=== PATIENT | female | born 1990 | race Caucasian/White ===

== ENCOUNTER 2024-07-22 12:24 | Emergency (ER) | payer MEDICAID, SELFPAY ==
[2024-07-22 13:18] VITALS: BP 136/97; PULSE 87; RESP 18; TEMP 36.9; O2SAT 100; BMI 21.8
--- NOTE | 2024-07-22 14:26 | ED.GENADULT ---
HPI - General Adult General Chief complaint: Unspecified Complaint, Adult Stated complaint: tetanus concern from puncture wound Time Seen by Provider: 07/22/24 14:14 Source: patient Mode of arrival: ambulatory Limitations: no limitations History of Present Illness HPI narrative: 33-year-old female presenting today with concerns that she may have tetanus. Patient punctured the right middle finger on a ceramic bowl 4 days ago. It has healed completely. Today she noticed that the space between her thumb and pointer finger for started tremoring for a couple of minutes. This has happened 3 times today. She denies pain in her jaw or face. No other muscle pain or spasming. No fevers, nausea or altered mental status. She denies her heart racing, sweating. No difficulty breathing or swallowing. Patient states that her tetanus shot was last updated in 2008. Related Data Home Medications ?Medication ?Instructions ?Recorded ?Confirmed No Known Home Medications 02/18/24 03/02/24 Allergies Allergy/AdvReac Type Severity Reaction Status Date / Time No Known Drug Allergies Allergy Verified 03/02/24 10:01 Review of Systems Status of ROS: Reports: 10 or more systems reviewed and unremarkable except as noted in History and below [facility] Medical History Asthma ?J45.909 - Unspecified asthma, uncomplicated (ICD-10) Surgical History History of endoscopy ?Z98.890 - Other specified postprocedural states (ICD-10) [place] teeth extracted ?K08.409 - Partial loss of teeth, unspecified cause, unspecified class (ICD-10) Family History Grandmother Osteoporosis Breast cancer Grandfather Kidney disease High blood pressure Heart disease Social History Narrative: Bachelor's Degree. Unable to work x5+ years d/t chronic fatigue syndrome. Lives with partner. What is your current living situation?: I presently have a place to live Problems where you live: no known problems In the past 12 months, utilities in danger of being shut off: no In past 12 months, lack of transportation kept you from medical appts, meetings, work, or getting things needed for daily living: no In the past 12 mos, have been you worried that your food would run out before you had money to buy more?: never true In the past 12 mos, the food you bought just didn't last and you didn't have money to buy more?: never true How often does anyone, including family, friends and others, physically hurt you: never How often does anyone, including family, friends and others, insult or talk down to you: rarely How often does anyone, including family, friends and others, threaten you with harm: never How often does anyone, including family, friends and others, scream or curse at you: never Health Related Social Needs: Other personal risk factors, not elsewhere classified (Z91.89) Exam Narrative: Exam Narrative: Well-nourished well-developed patient in no acute distress. Alert and oriented. Answers questions appropriately. Mood and affect are appropriate. Thoughts are goal oriented. Patient speaks in full sentences without needing to catch her breath. HEENT: Normocephalic atraumatic. Extraocular muscles are intact. Conjunctivae are moist without any icterus noted. Moist mucous membranes. Cardiovascular: Heart is regular rate and rhythm. Skin: Well perfused without any obvious rashes. Puncture wound site completely healed. Const: Vital Signs, click to edit/add: Vital Signs - 24 hr 07/22/24 13:18 Temperature 98.5 F Pulse Rate [Pulse Oximeter] 87 Respiratory Rate 18 Blood Pressure [Ri ght Upper Arm] 136/97 H Pulse Oximetry 100 Oxygen Delivery Me thod Room Air Course Vital Signs Vital signs: Initial Vital Signs Temperature 98.5 F 07/22/24 13:18 Temperature Source Temporal Artery Scan 07/22/24 13:18 Pulse Rate 87 07/22/24 13:18 Respiratory Rate 18 07/22/24 13:18 Blood Pressure 136/97 H 07/22/24 13:18 Blood Pressure Mean 110 H 07/22/24 13:18 Pulse Oximetry 100 07/22/24 13:18 Oxygen Delivery Method Room Air 07/22/24 13:18 Vital Signs Temperature 98.5 F 07/22/24 13:18 Pulse Rate 87 07/22/24 13:18 Respiratory Rate 18 07/22/24 13:18 Blood Pressure 136/97 H 07/22/24 13:18 Pulse Oximetry 100 07/22/24 13:18 Oxygen Delivery Method Room Air 07/22/24 13:18 Temperature 98.5 F 07/22/24 13:18 Pulse Rate 87 07/22/24 13:18 Respiratory Rate 18 07/22/24 13:18 Blood Pressure 136/97 H 07/22/24 13:18 Pulse Oximetry 100 07/22/24 13:18 Oxygen Delivery Method Room Air 07/22/24 13:18 Medical Decision Making MDM Narrative Medical decision making narrative: 33-year-old female status post puncture wound, completely healed. No evidence of tetanus. We will update her tetanus shot today. Discharge Plan Discharge Clinical Impression: Immunization deficiency Patient Disposition: Home, Self-Care Condition: Stable Instructions: The Importance of Immunizations (Vaccines) for Adults (ED) Prescriptions: No Action No Known Home Medications Follow Up/Referrals: Cinda Reddy DO [Primary Care Provider] - Stand Alone [facility] Inst[facility]
[2024-07-22] MEDS: TETANUS/DIPHTH/PERTUSSIS 0.5 ML SYRINGE IM (14:40)
== END 2024-07-22 15:02 | disposition home or self-care (01) ==
LOC: ED 14:56
PROVIDERS: Emergency Provider Family Medicine; PCP Family Medicine
DX: S61.232A Puncture wound without foreign body of right middle finger without damage to nail, initial encounter (principal); Z23 Encounter for immunization
CPT/HCPCS: 90471; 90715; 99283